=== PATIENT | male | born 1950 ===

== ENCOUNTER 2022-12-21 07:59 | Day surgery (SDC) | payer OTHER ==
[~2022-12-21] VITALS: Ht 177.8 cm; Wt 108.4 kg
[~2022-12-21 07:59] MED LIST: HYDACE5 PO; LISI20; NAPR550 PO; TYLENOL
[2022-12-21] MEDS ORDERED: CLOTRIMAZOLE10 ML (08:51)
[2022-12-21] MEDS ORDERED: Aspir 8181 MG (08:51)
[2022-12-21] MEDS ORDERED: Vitamin D1000 UNI1 (08:51)
[2022-12-21] MEDS ORDERED: ATEN25 (08:51)
[2022-12-21] MEDS ORDERED: ATOR20 (08:51)
[2022-12-21] MEDS ORDERED: OMEP20ER (08:52)
[2022-12-21] MEDS ORDERED: Metformin HCl750 MG (08:52)
[2022-12-21] MEDS ORDERED: LOSARTAN-HCTZ1 EAC5 (08:52)
--- NOTE | 2022-12-21 08:58 | NUR ---
12/21/22 0858 Cindy Harper 0852 TETRACAINE TO LEFT EYE 0855 PLEDGET BY [email or web address].[email or web address]
[2022-12-21 10:28] VITALS: BP 140/72
--- NOTE | 2022-12-21 10:54 | NUR ---
12/21/22 1054 Sundar Carpenter IV REMOVED. PT VOIDED PRIOR TO DISCHARGE.
== END 2022-12-21 10:50 | disposition home or self-care (01) ==
LOC: ORSCSDS 07:59
PROVIDERS: Ophthalmology
PROC: 08DK3ZZ Extraction of Left Lens, Percutaneous Approach (ICD-10-PCS; principal; 2022-12-21 09:30)
DX: E11.36 Type 2 diabetes mellitus with diabetic cataract (principal); H25.13 Age-related nuclear cataract, bilateral; K21.9 Gastro-esophageal reflux disease without esophagitis; I10 Essential (primary) hypertension; M19.90 Unspecified osteoarthritis, unspecified site; E78.5 Hyperlipidemia, unspecified; F41.9 Anxiety disorder, unspecified; Z87.891 Personal history of nicotine dependence; Z79.82 Long term (current) use of aspirin; Z79.84 Long term (current) use of oral hypoglycemic drugs; Z79.899 Other long term (current) drug therapy
CPT/HCPCS: 82947; J2001; J2250; J3010; J3301; J7040; V2632

== ENCOUNTER 2023-04-18 06:52 | Day surgery (SDC) | payer OTHER ==
[~2023-04-18] VITALS: Ht 180.3 cm; Wt 107.5 kg
[2023-04-18] VITALS (7 sets, daily range): BP systolic 145–170; BP diastolic 69–85
[~2023-04-18 06:52] MED LIST changes: +ATEN25; +ATOR20; +Aspir 8181 MG; +CLOTRIMAZOLE10 ML; +LOSARTAN-HCTZ1 EAC5; +Metformin HCl750 MG; +OMEP20ER; +Vitamin D1000 UNI1
[2023-04-18] MEDS ORDERED: B-12500 MC2 PO (07:46)
--- NOTE | 2023-04-18 10:30 | NUR ---
14CC AIR REMOVED FROM L WRIST TR BAND. -BLEEDING OR SWELLING.
--- NOTE | 2023-04-18 11:15 | NUR ---
PT VERBALIZED UNDERSTANDING OF WRITTEN AND VERBAL D/C INST. L WRIST TR BAND REMOVED. -BLEEING OR SWELLING. CLOTH DOT DRSG PLACED. R WRIST SPLINT REAPPLIED.
== END 2023-04-18 11:36 | disposition home or self-care (01) ==
LOC: MHTC 06:52
DX: I25.10 Atherosclerotic heart disease of native coronary artery without angina pectoris (principal); R94.39 Abnormal result of other cardiovascular function study; E78.5 Hyperlipidemia, unspecified; I10 Essential (primary) hypertension; E11.9 Type 2 diabetes mellitus without complications; K21.9 Gastro-esophageal reflux disease without esophagitis; Z79.84 Long term (current) use of oral hypoglycemic drugs; Z79.82 Long term (current) use of aspirin
CPT/HCPCS: 76937; 93458; 99152; 99153; C1769; C1894; J1644; J2250; J3010; J7030; J7050; Q9967

== ENCOUNTER 2023-09-21 07:25 | Day surgery (SDC) | payer OTHER ==
[~2023-09-21] VITALS: Ht 180.3 cm; Wt 110.0 kg
[~2023-09-21 07:25] MED LIST changes: -ATEN25; +ATEN25 PO; -ATOR20; +ATOR20 PO; -Aspir 8181 MG; +Aspir 8181 MG PO; +B-121000 MC3 PO; -CLOTRIMAZOLE10 ML; +CLOTRIMAZOLE10 ML TOP; +ERGO50000 PO; -LOSARTAN-HCTZ1 EAC5; +LOSARTAN-HCTZ1 EAC5 PO; -Metformin HCl750 MG; +Metformin HCl750 MG PO; +NITR.4SL SL; -OMEP20ER; +OMEP20ER PO; -Vitamin D1000 UNI1; +Vitamin D1000 UNI1 PO
--- NOTE | 2023-09-21 08:35 | NUR ---
09/21/23 0835 Irena Sweeney TETRACAINE PLACED IN RIGHT EYE AT 0818 PLEDGET PLACED IN RIGHT EYE AT 0820
[2023-09-21 09:01] VITALS: BP 133/81
== END 2023-09-21 09:14 | disposition home or self-care (01) ==
LOC: ORSCSDS 07:25
PROVIDERS: Ophthalmology
PROC: 08RK3JZ Replacement of Left Lens with Synthetic Substitute, Percutaneous Approach (ICD-10-PCS; principal; 2023-09-21 09:00)
DX: E11.36 Type 2 diabetes mellitus with diabetic cataract (principal); H25.11 Age-related nuclear cataract, right eye; Z96.1 Presence of intraocular lens; Z79.82 Long term (current) use of aspirin; Z79.84 Long term (current) use of oral hypoglycemic drugs; I25.2 Old myocardial infarction; I10 Essential (primary) hypertension; K21.9 Gastro-esophageal reflux disease without esophagitis; G47.33 Obstructive sleep apnea (adult) (pediatric); Z87.891 Personal history of nicotine dependence; E66.01 Morbid (severe) obesity due to excess calories; Z68.34 Body mass index [BMI] 34.0-34.9, adult; I25.10 Atherosclerotic heart disease of native coronary artery without angina pectoris
CPT/HCPCS: 82947; J2250; J3010; J3301; J7040; V2632

== ENCOUNTER 2024-05-27 18:29 | Emergency (ER) | payer OTHER ==
[~2024-05-27] VITALS: Ht 180.3 cm; Wt 106.6 kg
[2024-05-27] MEDS ORDERED: Acetaminophen 500 MG Tab PO ONE (23:35)
[2024-05-27] MEDS ORDERED: NS 1,000 ML IV SCH (23:35)
[2024-05-28 00:25] VITALS: BP 137/83
== END 2024-05-28 00:20 | disposition home or self-care (01) ==
LOC: ER 18:29
DX: J06.9 Acute upper respiratory infection, unspecified (principal); I10 Essential (primary) hypertension; E11.9 Type 2 diabetes mellitus without complications; Z88.8 Allergy status to other drugs, medicaments and biological substances; Z91.018 Allergy to other foods; Z79.82 Long term (current) use of aspirin; Z79.84 Long term (current) use of oral hypoglycemic drugs; Z79.899 Other long term (current) drug therapy
CPT/HCPCS: 93005; 93010; 99283; A9270; J7030